=== PATIENT | female | born 1995 | race African-American/Black ===

== ENCOUNTER 2024-09-06 02:34 | Emergency (ER) | payer BC ==
[2024-09-06 02:48] VITALS: BP 121/77; RESP 18; TEMP 98.8; BMI 28.4
[2024-09-06] MEDS ORDERED: ACETAMINOPHEN INJECTION 100 ML ONE (02:49)
[2024-09-06] MEDS ORDERED: ONDANSETRON 4 MG/2 ML VIAL ONE (02:49)
[2024-09-06] MEDS: ONDANSETRON 4 MG/2 ML VIAL IVPUSH ONE (02:55)
[2024-09-06] MEDS: ACETAMINOPHEN 1000 MG/100 ML BAG IVPB ONE (02:55)
[2024-09-06] MEDS: LACTATED RINGERS SOLUTION 1000 ML INFUS.BAG IV ONE (02:55)
[2024-09-06 03:06] LABS: ABSOLUTE IMMATURE GRANULOCYTES 0.03 x10^3/uL (0.0-0.031); BASOPHILS # 0.02 x10^3/uL (0.01-0.08); EOSINOPHIL % 0.4 % (0.7-5.8); EOSINOPHILS # 0.05 x10^3/uL (0.04-0.36); HEMATOCRIT 40.6 % (34.1-44.9); HEMOGLOBIN 13.5 g/dL (11.2-15.7); MCHC 33.3 g/dl (32.2-35.5); MEAN CELL VOLUME 88.3 fl (79.4-94.8); MEAN PLT VOLUME 9.8 fl (9.4-12.3); MONOCYTE # 0.59 x10^3/uL (0.24-0.86); MONOCYTE % 4.8 % (4.7-12.5); PLATELET COUNT 263 x10^3/uL (182-369); RDW 13.4 % (12.1-16.5)
[2024-09-06 03:29] LABS: POTASSIUM 3.5 mmol/L (3.5-5.1)
[2024-09-06 03:31] LABS: CALCIUM 9.2 mg/dL (8.5-10.1)
[2024-09-06 03:32] LABS: ALBUMIN 4.2 g/dl (3.4-5.0); BLOOD UREA NITROGEN 16.1 mg/dL (7-18); MAGNESIUM 2.1 mg/dL (1.8-2.4)
[2024-09-06 03:35] LABS: CREATININE 0.7 mg/dL (0.55-1.3)
[2024-09-06 03:37] LABS: BILIRUBIN,TOTAL 1.6 mg/dL (0.2-1); TOT PROT 6.9 g/dl (6.4-8.2)
[2024-09-06 04:04] LABS: BILIRUBIN,DIRECT 0.3 mg/dL (0.0-0.2)
[2024-09-06 04:18] VITALS: PULSE 98
== END 2024-09-06 04:35 | disposition home or self-care (01) ==
LOC: JER 02:34
PROC: 3E033NZ Introduction of Analgesics, Hypnotics, Sedatives into Peripheral Vein, Percutaneous Approach (ICD-10-PCS; principal; 2024-09-06)
PROC: 3E033GC Introduction of Other Therapeutic Substance into Peripheral Vein, Percutaneous Approach (ICD-10-PCS; 2024-09-06)
DX: K52.9 Noninfective gastroenteritis and colitis, unspecified (principal); R11.2 Nausea with vomiting, unspecified; R53.1 Weakness; R00.0 Tachycardia, unspecified
CPT/HCPCS: 0241U-QW; 36415; 80053; 82248; 83690; 83735; 84703; 85025; 99284-25; J0131